=== PATIENT | female | born 1970 | race African-American/Black ===

== ENCOUNTER 2025-08-20 22:56 | Emergency (ER) | payer OTHER ==
[~2025-08-20] VITALS: Ht 182.9 cm; Wt 119.9 kg
[2025-08-20 23:07] VITALS: O2SAT 99
[2025-08-20 23:38] LABS: BASOPHILS % 0.6 % (0.0-2.0); EOSINOPHILS % 2.1 % (0.0-5.0); HEMATOCRIT. 40.5 % (36.0-48.0); HEMOGLOBIN. 13.4 g/dL (12.0-16.0); LYMPHOCYTES % 37.9 % (20.0-50.0); MEAN PLATELET VOLUME 8.0 fl (7.4-10.4); MONOCYTES % 6.2 % (2.0-8.0); NEUTROPHILS % 53.2 % (40.0-76.0); PLATELET 222 x1000/uL (130-400); RED BLOOD CELL COUNT 4.50 mill/uL (4.2-5.4); RED CELL DISTRIBUTION WIDTH 14.0 % (11.6-14.6)
[2025-08-20 23:42] LABS: CREATININE 0.9 mg/dL (0.6-1.0); UREA NITROGEN BLOOD 9 mg/dL (9-23)
[2025-08-20 23:43] LABS: TROPONIN I HIGH SENSITIVITY < 4 ng/L (3.0-34)
[2025-08-20] MEDS: ONDANSETRON HCL 4MG/2ML INJ IV ONE (23:52)
[2025-08-20] MEDS: SODIUM CHLORIDE 0.9% 1,000 ML IV ONE (23:52)
[2025-08-20] MEDS: MECLIZINE 12.5MG TABLET PO ONE (23:52)
[2025-08-21 02:04] VITALS: TEMP 36.8
[2025-08-21] MEDS ORDERED: ONDA4TAB50 MT (02:34)
[2025-08-21] MEDS ORDERED: MECL-217 MT (02:34)
[2025-08-21 02:44] VITALS: BP 170/95; PULSE 76; RESP 18; O2SAT 99
== END 2025-08-21 03:00 | disposition home or self-care (01) ==
LOC: ER 22:56 → CMPBEDREQ 08-21 04:05
DX: R42 Dizziness and giddiness (principal); E11.9 Type 2 diabetes mellitus without complications; E78.00 Pure hypercholesterolemia, unspecified; I10 Essential (primary) hypertension; Z88.5 Allergy status to narcotic agent; Z88.2 Allergy status to sulfonamides
CPT/HCPCS: 99285; 96374; 71045; 96361; 80048; 85025; 84484; 36415; 93005; 70450; J8597; J2405; J7030